=== PATIENT | female | born 1935 | race Caucasian/White ===

== ENCOUNTER 2021-10-12 11:39 | Day surgery (SDC) | payer MEDICARE ==
[~2021-10-12] VITALS: Ht 160 cm; Wt 54.1 kg
[2021-10-12] VITALS (9 sets, daily range): BP systolic 167–190; BP diastolic 68–88
[~2021-10-12 11:39] MED LIST: MELA1TAB52 PO; NAPR220T67 PO
[2021-10-12] MEDS ORDERED: normal saline 1,000 ML IV SCH (12:10)
[2021-10-12] MEDS ORDERED: LORazepam 0.5 MG tablet PO PRN (12:10)
[2021-10-12] MEDS ORDERED: diphenhydrAMINE 25mg capsule PO PRN (12:10)
[2021-10-12] MEDS ORDERED: VITA-268 PO (12:35)
[2021-10-12] MEDS ORDERED: lutein PO (12:35)
[2021-10-12] MEDS ORDERED: IODI150T PO (12:35)
[2021-10-12] MEDS ORDERED: GINK60TA2 PO (12:35)
[2021-10-12] MEDS ORDERED: [UNRECOGNIZED DRUG - OTHER] PO (12:35)
[2021-10-12] MEDS ORDERED: magnesium PO (12:35)
[2021-10-12] MEDS ORDERED: OMEG1CAP46 PO (12:35)
[2021-10-12] MEDS ORDERED: UBID30CA11 PO (12:35)
[2021-10-12] MEDS ORDERED: LACT1CAP65 PO (12:35)
[2021-10-12] MEDS ORDERED: collagen TOP (12:35)
[2021-10-12] MEDS ORDERED: ASPI81TA52 PO (12:35)
[2021-10-12] MEDS ORDERED: CHOL100046 PO (12:35)
[2021-10-12] MEDS ORDERED: VITA100T5 PO (12:35)
[2021-10-12] MEDS ORDERED: FLAX10007 PO (12:35)
[2021-10-12] MEDS ORDERED: BIOT10TA PO (12:35)
[2021-10-12] MEDS ORDERED: GLUC-253 PO (12:35)
[2021-10-12] MEDS ORDERED: astragalus PO (12:35)
[2021-10-12] MEDS ORDERED: ASCO500C17 PO (12:35)
[2021-10-12] MEDS ORDERED: BILB1CAP PO (12:35)
[2021-10-12] MEDS ORDERED: HAWTHORN PO (12:35)
[2021-10-12 12:51] LABS: BASOPHILS # (AUTO) 0.1 X10'3 (0-0.2); EOSINOPHILS # (AUTO) 0.1 X10'3 (0-0.9); EOSINOPHILS % (AUTO) 1.9 % (0-6); HEMATOCRIT 42.2 % (35.0-45.0); HEMOGLOBIN 14.4 g/dl (12.0-16.0); LYMPHOCYTES # (AUTO) 1.4 X10'3 (1.1-4.8); LYMPHOCYTES % (AUTO) 25.7 % (21-51); MEAN CORPUSCULAR HEMOGLOBIN 30.4 PG (27.0-31.0); MEAN CORPUSCULAR HGB CONC 34.1 g/dL (33.0-36.5); MEAN CORPUSCULAR VOLUME 89.2 FL (78-98); MEAN PLATELET VOLUME 7.4 FL (7.4-10.4); MONOCYTES # (AUTO) 0.4 X10'3 (0-0.9); MONOCYTES % (AUTO) 7.6 % (2-12); NEUTROPHILS # (AUTO) 3.5 X10'3 (1.8-7.7); NEUTROPHILS % (AUTO) 63.8 % (42-75); PLATELET COUNT 199 X10'3 (140-440); RED BLOOD COUNT 4.73 X10'6 (4.20-5.60); RED CELL DISTRIBUTION WIDTH 13.2 % (11.5-14.5); WHITE BLOOD COUNT 5.5 X10'3 (4.5-11.0)
[2021-10-12 12:58] LABS: ALBUMIN 4.8 G/DL (3.4-5.0); ANION GAP 11 (8-16); BLOOD UREA NITROGEN 18 MG/DL (7-18); BUN/CREATININE RATIO 16.4 (6.6-38.0); CALCIUM 10.4 MG/DL (8.5-10.1); CHLORIDE 103 MMOL/L (99-107); GLUCOSE 93 MG/DL (70-104); POTASSIUM 4.4 MMOL/L (3.5-5.1); SODIUM 142 MMOL/L (135-145); TOTAL CARBON DIOXIDE 28.5 MMOL/L (24-32); eGFR 47 ML/MIN
[2021-10-12 13:02] LABS: APTT 26 SECONDS (22-32)
[2021-10-12] MEDS ORDERED: verapamil 2.5 mg/ml inj IV ONE (14:17)
[2021-10-12] MEDS ORDERED: fentaNYL/PF 50MCG/1 ML 2ML syringe ONE (14:17)
[2021-10-12] MEDS ORDERED: nitroGLYCERIN-Tridil 50MG/D5W 250 ML IV ONE (14:17)
[2021-10-12] MEDS ORDERED: heparin 1,000unit/ml 10ml vial 10 ML ONE (14:18)
[2021-10-12] MEDS ORDERED: midazolam 1 mg/ML 2ml injection ONE (14:18)
[2021-10-12] MEDS ORDERED: iohexol 350MG/ML 100ml bottle IV ONE ×2 (14:18→15:31)
[2021-10-12] MEDS ORDERED: LIDOcaine 1% (10mg/ml) 2ml vial ONE (14:18)
[2021-10-12] MEDS ORDERED: aspirin 325mg tablet ONE (15:21)
[2021-10-12] MEDS ORDERED: clopidogrel 300mg tablet ONE (15:21)
[2021-10-12] MEDS ORDERED: HYDROcodone/acetaminophen 5mg/325mg tablet PO PRN (16:45)
[2021-10-12] MEDS ORDERED: HYDROcodone/acetaminophen 10/325mg tab PO PRN (16:45)
[2021-10-13 06:28] LABS: ISTAT Hct MIX 34 %PCV (35-48); ISTAT O2 SATURATION MIX VENOUS 59 % (60-80); ISTAT SOURCE VEN
[2021-10-13 06:28] LABS: ISTAT Hct MIX 34 %PCV (35-48); ISTAT O2 SATURATION MIX VENOUS 80 % (60-80); ISTAT SOURCE BLNK
== END 2021-10-12 18:45 | disposition home or self-care (01) ==
LOC: SSTAY O 11:39
PROVIDERS: ATTEND Student in an Organized Health Care Education/Training Program
DX: I25.10 Atherosclerotic heart disease of native coronary artery without angina pectoris (principal); I10 Essential (primary) hypertension; I08.0 Rheumatic disorders of both mitral and aortic valves; Z79.899 Other long term (current) drug therapy; Z98.890 Other specified postprocedural states; Z88.0 Allergy status to penicillin; Z79.01 Long term (current) use of anticoagulants
CPT/HCPCS: 36415; 80048; 82803; 85014; 85025; 85610; 85730; 93005; 93456; 99152; 99153; A6258; C1725; C1751; C1769; C1874; C1894; C9600; J1644; J2250; J3010; J3490; J7030; Q0163; Q9967; A5120; A6402

== ENCOUNTER 2022-01-19 11:44 | Outpatient (CLI) | payer MEDICARE ==
[~2022-01-19 11:44] MED LIST changes: +ASCO500C17 PO; +ASPI81TA52 PO; +BILB1CAP PO; +BIOT10TA PO; +CHOL100046 PO; +FLAX10007 PO; +GINK60TA2 PO; +GLUC-253 PO; +HAWTHORN PO; +IODI150T PO; +IODIXANOL 320 MG/ML INFUS..BTL 100ML IV ONE; +LACT1CAP65 PO; -MELA1TAB52 PO; -NAPR220T67 PO; +OMEG1CAP46 PO; +UBID30CA11 PO; +VITA-268 PO; +VITA100T5 PO; +[UNRECOGNIZED DRUG - OTHER] PO; +astragalus PO; +collagen TOP; +lutein PO; +magnesium PO
[2022-01-19 12:23] LABS: BASOPHILS % (AUTO) 0.8 % (0-1); EOSINOPHILS # (AUTO) 0.1 X10'3 (0-0.9); EOSINOPHILS % (AUTO) 1.2 % (0-6); HEMATOCRIT 39.4 % (35.0-45.0); HEMOGLOBIN 13.3 g/dl (12.0-16.0); LYMPHOCYTES # (AUTO) 1.2 X10'3 (1.1-4.8); LYMPHOCYTES % (AUTO) 22.4 % (21-51); MEAN CORPUSCULAR HEMOGLOBIN 30.5 PG (27.0-31.0); MEAN CORPUSCULAR HGB CONC 33.7 g/dL (33.0-36.5); MEAN CORPUSCULAR VOLUME 90.5 FL (78-98); MEAN PLATELET VOLUME 7.6 FL (7.4-10.4); MONOCYTES # (AUTO) 0.4 X10'3 (0-0.9); MONOCYTES % (AUTO) 6.6 % (2-12); NEUTROPHILS # (AUTO) 3.7 X10'3 (1.8-7.7); PLATELET COUNT 162 X10'3 (140-440); RED BLOOD COUNT 4.35 X10'6 (4.20-5.60); RED CELL DISTRIBUTION WIDTH 13.1 % (11.5-14.5); WHITE BLOOD COUNT 5.4 X10'3 (4.5-11.0)
[2022-01-19 14:51] LABS: APTT 26 SECONDS (22-32)
[2022-01-19 15:06] LABS: ALANINE AMINOTRANSFERASE 36 U/L (12-78); ALBUMIN 4.3 G/DL (3.4-5.0); ALBUMIN/GLOBULIN RATIO 1.4 (1.1-1.5); ALKALINE PHOSPHATASE 65 IU/L (46-116); ANION GAP 11 (8-16); ASPARTATE AMINO TRANSFERASE 27 U/L (10-37); BILIRUBIN,TOTAL 0.6 MG/DL (0.1-1.0); BLOOD UREA NITROGEN 15 MG/DL (7-18); BUN/CREATININE RATIO 14.3 (6.6-38.0); CALCIUM 10.1 MG/DL (8.5-10.1); CHLORIDE 103 MMOL/L (99-107); CREATININE 1.05 MG/DL (0.40-0.90); GLUCOSE 97 MG/DL (70-104); POTASSIUM 4.3 MMOL/L (3.5-5.1); SODIUM 142 MMOL/L (135-145); TOTAL PROTEIN 7.4 G/DL (6.4-8.2); eGFR 50 ML/MIN
== END 2022-01-19 23:59 | disposition home or self-care (01) ==
LOC: RAD 11:44
PROVIDERS: ATTEND Internal Medicine Cardiovascular Disease
DX: Z01.818 Encounter for other preprocedural examination (principal); I70.0 Atherosclerosis of aorta; I31.39 Other pericardial effusion (noninflammatory); I51.7 Cardiomegaly; I35.0 Nonrheumatic aortic (valve) stenosis; I65.29 Occlusion and stenosis of unspecified carotid artery; Z87.891 Personal history of nicotine dependence; Z79.899 Other long term (current) drug therapy
CPT/HCPCS: 36415; 71046; 71275; 74174; 80053; 85025; 85610; 85730; 94010; 94727; 94729; J3490; Q9967

== ENCOUNTER 2022-03-17 08:21 | Inpatient (IN) | payer MEDICARE ==
[2022-03-11 11:25] LABS: BASOPHILS # (AUTO) 0.1 X10'3 (0-0.2); EOSINOPHILS # (AUTO) 0.1 X10'3 (0-0.9); EOSINOPHILS % (AUTO) 2.4 % (0-6); LYMPHOCYTES # (AUTO) 1.1 X10'3 (1.1-4.8); LYMPHOCYTES % (AUTO) 22.9 % (21-51); MEAN CORPUSCULAR HEMOGLOBIN 31.4 PG (27.0-31.0); MEAN CORPUSCULAR HGB CONC 34.4 g/dL (33.0-36.5); MEAN CORPUSCULAR VOLUME 91.1 FL (78-98); MEAN PLATELET VOLUME 7.6 FL (7.4-10.4); MONOCYTES # (AUTO) 0.4 X10'3 (0-0.9); MONOCYTES % (AUTO) 7.2 % (2-12); NEUTROPHILS # (AUTO) 3.3 X10'3 (1.8-7.7); NEUTROPHILS % (AUTO) 66.5 % (42-75); PRE OP HEMATOCRIT 35.9 % (35.0-45.0); PRE OP HEMOGLOBIN 12.4 g/dL (12.0-16.0); PRE OP PLATELET COUNT 160 X10'3 (140-440); RED BLOOD COUNT 3.94 X10'6 (4.20-5.60)
[2022-03-11 11:43] LABS: PRE OP INR 1.1 INR; PRE OP PROTIME 11.4 SECONDS (9.0-12.0)
[2022-03-11 11:46] LABS: ALBUMIN 3.9 G/DL (3.4-5.0); ALBUMIN/GLOBULIN RATIO 1.2 (1.1-1.5); ALKALINE PHOSPHATASE 73 IU/L (46-116); BLOOD UREA NITROGEN 14 MG/DL (7-18); BUN/CREATININE RATIO 13.3 (6.6-38.0); CALCIUM 9.6 MG/DL (8.5-10.1); CHLORIDE 105 MMOL/L (99-107); CREATININE 1.05 MG/DL (0.40-0.90); PRE OP ALT 36 U/L (30-65); PRE OP ANION GAP 3 (8-16); PRE OP AST 32 U/L (10-37); PRE OP BILIRUB, TOTAL 0.4 MG/DL (0.0-1.0); PRE OP GLUCOSE 73 MG/DL (70-104); PRE OP POTASSIUM 4.3 MMOL/L (3.4-5.1); PRE OP SODIUM 140 MMOL/L (135-145); TOTAL CARBON DIOXIDE 32.2 MMOL/L (24-32); TOTAL PROTEIN 7.2 G/DL (6.4-8.2); eGFR 50 ML/MIN
[2022-03-11 12:12] LABS: CLARITY,URINE SLIGHTLY CLOUDY (Clear); COLOR,URINE YELLOW (Yellow); GLUCOSE, URINE NEGATIVE (Neg); KETONES,URINE NEGATIVE (Neg); LEUKOCYTE ESTERASE ,URINE NEGATIVE (Neg); NITRITES, URINE NEGATIVE (Neg); OCCULT BLOOD,URINE NEGATIVE (Neg); PROTEIN,URINE NEGATIVE (Neg); UROBILINOGEN,URINE 0.2 E.U/dL (0.2-1.0)
[2022-03-11 12:20] LABS: UA COLLECTION TYPE NON-SPECIFIED
[2022-03-11 12:21] LABS: BACTERIA,URINE FEW /HPF (Neg); RBC,URINE 0-2 /HPF (0-2); SQUAMOUS EPITHELIAL CELL,UR FEW /LPF (FEW); WBC,URINE 0-4 /HPF (0-4)
[~2022-03-17] VITALS: Ht 152.4 cm; Wt 51.8 kg
[2022-03-17] VITALS (26 sets, daily range): BP systolic 133–165; BP diastolic 38–79
[~2022-03-17 08:21] MED LIST changes: +ATOR40TA PO; +CLOP-32 PO; -FLAX10007 PO; -GINK60TA2 PO; -IODI150T PO; -IODIXANOL 320 MG/ML INFUS..BTL 100ML IV ONE; +LIDOcaine 1% (10mg/ml) 2ml vial ONE; +LISI10TA27 PO; +aspirin 325mg tablet PO ONE; -astragalus PO; -collagen TOP; +famotidine 20mg tablet PO ONE; +nitroPRUSSIDE (NIPRIDE) (200MCG/ML) 100ML Drip IV SCH; +ondansetron/PF 4mg/2ml inj IV PRN; +phenylephrine inj 50 MG in normal saline 250ml IV solN IV SCH; +protamine sulfate 10mg/ml inj. ONE; +ringers solution, lacted 1,000 ML IV SCH; +vancomycin/NS 1 GM in NS 250 ML IV ONE
[2022-03-17] MEDS ORDERED: morphine 4 MG/ML inj SYRINge IV PRN (10:55)
[2022-03-17] MEDS ORDERED: labetalol 20mg/4ml (5mg/ml) syringe IV PRN (10:55)
[2022-03-17] MEDS ORDERED: morphine 2 MG/ML inj. syringe IV PRN (10:55)
[2022-03-17] MEDS ORDERED: fentaNYL/PF 50MCG/1 ML 2ML syringe IV PRN ×2 (10:55)
[2022-03-17] MEDS ORDERED: ringers solution, lacted 1,000 ML IV SCH (10:55)
[2022-03-17] MEDS ORDERED: ondansetron/PF 4mg/2ml inj IV PRN ×2 (10:55→14:40)
[2022-03-17] MEDS ORDERED: hydrALAZINE 20mg/ml inj. IV PRN ×2 (10:55→14:40)
[2022-03-17] MEDS ORDERED: LIDOcaine 1% 30ml preserv. free vial ONE (12:31)
[2022-03-17] MEDS ORDERED: iohexol 350 MG/ML 50ML vial IV ONE (12:31)
[2022-03-17] MEDS ORDERED: iohexol 350MG/ML 100ml bottle IV ONE (12:31)
[2022-03-17] MEDS ORDERED: heparin 1,000 UNITS/NS 500ml 1,500 ML ONE (12:32)
[2022-03-17] MEDS ORDERED: dexmedetomidine 200mcg/2ml inj. IV ONE (12:45)
[2022-03-17] MEDS ORDERED: fentaNYL/PF 50MCG/1 ML 2ML syringe ONE (12:46)
[2022-03-17] MEDS ORDERED: midazolam 1 mg/ML 2ml injection ONE ×2 (12:47)
[2022-03-17] MEDS ORDERED: heparin 1,000unit/ml 10ml vial 10 ML ONE (13:11)
[2022-03-17] MEDS ORDERED: propofol inj 20 ML IV ONE (13:46)
[2022-03-17] MEDS ORDERED: magnesium 4gm in 100ml NS 100 ML IV PRN (14:40)
[2022-03-17] MEDS ORDERED: magnesium 2GM in 50ml NS 50 ML IV PRN (14:40)
[2022-03-17] MEDS ORDERED: docusate sod 100mg capsule PO PRN (14:40)
[2022-03-17] MEDS ORDERED: ALPRAZolam 0.25mg tablet PO PRN (14:40)
[2022-03-17] MEDS ORDERED: potassium Cl 20 mEq SR tablet PO PRN (14:40)
[2022-03-17] MEDS ORDERED: potassium Cl 20mEq/100mL bag 100 ML IV PRN (14:40)
[2022-03-17] MEDS ORDERED: diphenhydrAMINE 25mg capsule PO PRN (14:40)
[2022-03-17] MEDS ORDERED: potassium Cl 40MEQ/1/2NS 520ml 520 ML IV PRN (14:40)
[2022-03-17] MEDS ORDERED: potassium Cl 40MEQ/270ML bag 250 ML IV PRN (14:40)
[2022-03-17] MEDS ORDERED: proCHLORperazine 10 MG/2 ml inj IV PRN (14:40)
[2022-03-17] MEDS ORDERED: potassium CL 10mEq/100ml bag 100 ML IV PRN (14:40)
[2022-03-17] MEDS ORDERED: pantoprazole 40mg Tablet.DR PO PRN (14:40)
[2022-03-17] MEDS ORDERED: acetaminophen 325mg tablet PO PRN (14:40)
--- NOTE | 2022-03-17 14:48 | NUR ---
Received from OR via HOSPITAL BED, accompanied by Anesthesiologist DR CURTIS and report given by Anesthesiolgist. PT PRESENTS WITH PIV 18G LEFT FOREARM, ART LINE RIGHT ARM, PEDAL PULSES FOUND WITH DOPPLER, PT CAME OUT OF OR WITH EXTERNAL PACEMAKER 6 VENEZUELAN LEFT FEMERAL VEIN, DR VINCENT TO RE-EVALAUTED PEXTERNAL PACEMAKER IN 1 HOUR. VSS. Addendum: 03/17/22 at 1531 by Toshia Torres RN, RN Amended: Links added.
--- NOTE | 2022-03-17 15:45 | NUR ---
PT RIGHT GROIN DRESSING SATURATED. I PUT NEW 4X4 WITH PRESSURE FOR 15 MINUTES. NEW 4X4 AND NEW TEGADERM PLACED.
[2022-03-17] MEDS ORDERED: ceFAZolin 1GM/D5W- ADD-VANTAGE 50 ML IV SCH (16:00)
--- NOTE | 2022-03-17 16:47 | NUR ---
PT'S FRIEND/CONTACT IS TONY [phone]
--- NOTE | 2022-03-17 17:07 | NUR ---
DR LOUISE AND DR VINCENT AT BEDSIDE, EXTERNAL PACEMAKER REMOVED FROM LEFT GROIN, PRESSURE HELD. DRESSING PLACED 4X4 WITH TEGADERM. RIGHT SIDE GROIN DRESSING SCANT BLOOD. DRESSING REMOVED, DR VINCENT PUT PRESSURE AND NEW DRESSING WITH TEGADERM APPLIED.
[2022-03-17] MEDS ORDERED: LIDOCAINE 2%/EPI 1:100,000 inj. Multi-dose 20 ML VIAL IJ ONE (17:16)
--- NOTE | 2022-03-17 18:08 | NUR ---
Report called to receiving nurse LYNSEY GERMAN. Transferred via HOSPITAL BED TO ROOM 3027B. BED IN LOW LOCKED POSITION, CALL LIGHT IN REACH. PT LEFT GROIN WITH HEMATOME. DR VINCENT CALLED AND REOMEND THAT WE PUT PRESSURE FOR 10-15 MINUTES. MESSAGE RELAYED TO LYNSEY GERMAN. ONE PT Belongings BAG TO ROOM 3027B.PT KAY DUP TO BEDSIDE MONITOR, PEDAL PULSES FOUND WITH DOPPLER. Special Issues communicated to receiving nurse. Addendum: 03/17/22 at 1822 by Toshia Torres RN, RN Amended: Links added.
--- NOTE | 2022-03-17 18:10 | NUR ---
Pt brought from recovery. Left groin was noted to have hematoma. Dalia GERMAN holding pressure for [address] Busby states its most likely a venous bleed. Hold pressure for 10 min. Venous bleed has decreased in size.
[2022-03-17] MEDS: normal saline 1000ml 1,000 ML IV SCH (18:12)
--- NOTE | 2022-03-17 18:20 | NUR ---
Dalia GERMAN held pressure for 5 more minutes. Hematoma is shaped like a bumpy log. Femstop to be placed.
--- NOTE | 2022-03-17 18:39 | NUR ---
Destini placed 1835 left groin.
--- NOTE | 2022-03-17 18:42 | NUR ---
Problems reprioritized. Patient report given, questions answered & plan of care reviewed with Paula RN. Bedside report given.
[2022-03-17] MEDS: vancomycin/NS 1 GM ADD-VANTAGE 250 ML IV SCH (20:52)
[2022-03-17] MEDS ORDERED: atorvastatin 20mg tablet PO SCH (21:00)
--- NOTE | 2022-03-17 22:26 | NUR ---
Received pt. awake alert oriented post procedure c/o pain at right groin site. Day nurse holding pressure over hematoma. Placed on Femstop 45 mm/hg pressure. Dressing dry and intact outlined hematoma site. Peripheral IV intact NS at 100. Monitor shows NSR occasional PVC Pt. feels cool to touch warm blankets applied. Left arm large bruise noted. Pt. ingesting fluids well. Purewick placed. Medicated for pain as needed tolerated well effective relief. Plan Flat position until 12 MN then move about in bed bedrest.
[2022-03-18] VITALS: BP 144/46
[2022-03-18 02:00] VITALS: BP 140/47
[2022-03-18 04:00] VITALS: BP 136/58
[2022-03-18] MEDS: normal saline 1000ml 1,000 ML IV SCH (06:39)
[2022-03-18] MEDS: sod chloride 0.9% 10ml flush syringe IV SCH ×2 (06:40→08:54)
[2022-03-18 07:15] VITALS: BP 125/80
[2022-03-18 07:43] LABS: BASOPHILS % (AUTO) 0.6 % (0-1); EOSINOPHILS # (AUTO) 0.1 X10'3 (0-0.9); EOSINOPHILS % (AUTO) 1.4 % (0-6); HEMATOCRIT 29.2 % (35.0-45.0); HEMOGLOBIN 10.3 g/dl (12.0-16.0); LYMPHOCYTES # (AUTO) 0.9 X10'3 (1.1-4.8); LYMPHOCYTES % (AUTO) 15.8 % (21-51); MEAN CORPUSCULAR HEMOGLOBIN 32.4 PG (27.0-31.0); MEAN CORPUSCULAR HGB CONC 35.2 g/dL (33.0-36.5); MEAN CORPUSCULAR VOLUME 92.1 FL (78-98); MEAN PLATELET VOLUME 7.9 FL (7.4-10.4); MONOCYTES # (AUTO) 0.5 X10'3 (0-0.9); MONOCYTES % (AUTO) 9.1 % (2-12); NEUTROPHILS # (AUTO) 4.3 X10'3 (1.8-7.7); NEUTROPHILS % (AUTO) 73.1 % (42-75); PLATELET COUNT 123 X10'3 (140-440); RED BLOOD COUNT 3.17 X10'6 (4.20-5.60); RED CELL DISTRIBUTION WIDTH 15.5 % (11.5-14.5); WHITE BLOOD COUNT 5.9 X10'3 (4.5-11.0)
[2022-03-18] MEDS ORDERED: OMEGA-3/DHA/EPA/FISH OIL 1 EACH CAPSULE.DR PO SCH (08:00)
[2022-03-18] MEDS ORDERED: GLUCOS SUL PO SCH (08:00)
[2022-03-18] MEDS ORDERED: ascorbic acid 500mg tablet PO SCH (08:00)
[2022-03-18] MEDS ORDERED: vitamin B comp w/Vit. C tab 1 TAB TABLET PO SCH (08:00)
[2022-03-18] MEDS ORDERED: [UNRECOGNIZED DRUG - OTHER] PO SCH (08:00)
[2022-03-18] MEDS ORDERED: lisinopril 10 MG tablet PO SCH (08:00)
[2022-03-18] MEDS ORDERED: MAGNESIUM 300 MG PO SCH (08:00)
[2022-03-18] MEDS ORDERED: BIOTIN PO SCH (08:00)
[2022-03-18] MEDS ORDERED: vitamin E 400 unit capsule PO SCH (08:00)
[2022-03-18] MEDS ORDERED: lactobacillus rhamnosus 10,000 MMU CELLS/CAPSULE PO SCH (08:00)
[2022-03-18] MEDS ORDERED: LUTEIN 6 MG PO SCH (08:00)
[2022-03-18] MEDS ORDERED: HAWTHORN PO SCH (08:00)
[2022-03-18] MEDS ORDERED: cholecalciferol (vitamin D3) 1,000 unit (25mcg) tablet PO SCH (08:00)
[2022-03-18] MEDS ORDERED: UBIDECARENONE 60 MG PO SCH (08:00)
[2022-03-18] MEDS ORDERED: [UNRECOGNIZED DRUG - OTHER] PO SCH (08:00)
[2022-03-18] MEDS ORDERED: aspirin 81mg, enteric-coated 1 TAB TABLET.DR PO SCH (08:00)
[2022-03-18] MEDS ORDERED: clopidogrel 75mg tablet PO SCH (08:00)
[2022-03-18 08:11] LABS: ALANINE AMINOTRANSFERASE 28 U/L (12-78); ALBUMIN/GLOBULIN RATIO 1.2 (1.1-1.5); ALKALINE PHOSPHATASE 62 IU/L (46-116); ANION GAP 5 (8-16); ASPARTATE AMINO TRANSFERASE 37 U/L (10-37); BILIRUBIN,TOTAL 0.5 MG/DL (0.1-1.0); BLOOD UREA NITROGEN 10 MG/DL (7-18); CALCIUM 8.8 MG/DL (8.5-10.1); CHLORIDE 107 MMOL/L (99-107); CREATININE 0.83 MG/DL (0.40-0.90); GLUCOSE 110 MG/DL (70-104); MAGNESIUM 2.4 MG/DL (1.5-2.4); POTASSIUM 4.4 MMOL/L (3.5-5.1); SODIUM 137 MMOL/L (135-145); TOTAL CARBON DIOXIDE 25.3 MMOL/L (24-32); TOTAL PROTEIN 5.6 G/DL (6.4-8.2); eGFR 65 ML/MIN
[2022-03-18] MEDS: vancomycin/NS 1 GM ADD-VANTAGE 250 ML IV SCH (08:51)
[2022-03-18 11:31] VITALS: BP 125/39
--- NOTE | 2022-03-18 12:45 | NUR ---
Amb 300 ft with walker
[2022-03-18 14:42] VITALS: BP 127/48
--- NOTE | 2022-03-18 16:25 | NUR ---
T DISCHARGED IN STABLE CONDITON A LITTLE AFTER 3PM WITH BELONGINGS AND DISCHARGE INFO WELL APPOINTMENT LIST. PT CALLED AND CAME BACK AND GOT MODEL NUMBER FOR AVR.
== END 2022-03-18 15:00 | disposition home or self-care (01) | DRG 267 ==
LOC: UNDOADMIN 08:21 → PAS IN 08:21 → PCU 3S 17:52
PROVIDERS: ADMIT Internal Medicine Cardiovascular Disease; ATTEND Internal Medicine Cardiovascular Disease
PROC: 02RF38Z Replacement of Aortic Valve with Zooplastic Tissue, Percutaneous Approach (ICD-10-PCS; 2022-03-17)
PROC: 5A1223Z Performance of Cardiac Pacing, Continuous (ICD-10-PCS; 2022-03-17)
PROC: B41D1ZZ Fluoroscopy of Aorta and Bilateral Lower Extremity Arteries using Low Osmolar Contrast (ICD-10-PCS; principal; 2022-03-17 12:45)
DX: I35.0 Nonrheumatic aortic (valve) stenosis (principal); Z00.6 Encounter for examination for normal comparison and control in clinical research program; Z60.2 Problems related to living alone; I10 Essential (primary) hypertension; I25.10 Atherosclerotic heart disease of native coronary artery without angina pectoris; I45.9 Conduction disorder, unspecified; Z98.61 Coronary angioplasty status; Z88.0 Allergy status to penicillin; Z88.8 Allergy status to other drugs, medicaments and biological substances
CPT/HCPCS: 33361; 36415; 71045; 71046; 76937; 80053; 81001; 82948; 83735; 83880; 85025; 85347; 85610; 85730; 86920; 87081; 93005; 93308; A4565; A4615; A4618; A6223; A6258; A6449; C1756; C1760; C1769; C1892; C1894; G0378; J1644; J2250; J2270; J2370; J2405; J2704; J2720; J3010; J3370; J3490; J7030; J7040; J7050; J7120; Q9967

== ENCOUNTER 2022-03-30 00:18 | Emergency (ER) | payer MEDICARE ==
[~2022-03-30] VITALS: Ht 152.4 cm; Wt 65.0 kg
[~2022-03-30 00:18] MED LIST changes: -LIDOcaine 1% (10mg/ml) 2ml vial ONE; -aspirin 325mg tablet PO ONE; -famotidine 20mg tablet PO ONE; -nitroPRUSSIDE (NIPRIDE) (200MCG/ML) 100ML Drip IV SCH; -ondansetron/PF 4mg/2ml inj IV PRN; -phenylephrine inj 50 MG in normal saline 250ml IV solN IV SCH; -protamine sulfate 10mg/ml inj. ONE; -ringers solution, lacted 1,000 ML IV SCH; -vancomycin/NS 1 GM in NS 250 ML IV ONE
[2022-03-30 01:01] LABS: BASOPHILS # (AUTO) 0.1 X10'3 (0-0.2); BASOPHILS % (AUTO) 1.1 % (0-1); EOSINOPHILS # (AUTO) 0.2 X10'3 (0-0.9); EOSINOPHILS % (AUTO) 3.2 % (0-6); HEMATOCRIT 32.9 % (35.0-45.0); HEMOGLOBIN 11.4 g/dl (12.0-16.0); LYMPHOCYTES # (AUTO) 1.1 X10'3 (1.1-4.8); LYMPHOCYTES % (AUTO) 18.5 % (21-51); MEAN CORPUSCULAR HGB CONC 34.6 g/dL (33.0-36.5); MEAN CORPUSCULAR VOLUME 92.4 FL (78-98); MEAN PLATELET VOLUME 7.2 FL (7.4-10.4); MONOCYTES # (AUTO) 0.4 X10'3 (0-0.9); NEUTROPHILS # (AUTO) 4.2 X10'3 (1.8-7.7); NEUTROPHILS % (AUTO) 71.2 % (42-75); PLATELET COUNT 175 X10'3 (140-440); RED BLOOD COUNT 3.56 X10'6 (4.20-5.60); RED CELL DISTRIBUTION WIDTH 15.7 % (11.5-14.5); WHITE BLOOD COUNT 5.9 X10'3 (4.5-11.0)
[2022-03-30 01:08] LABS: ALANINE AMINOTRANSFERASE 36 U/L (12-78); ALBUMIN 4.3 G/DL (3.4-5.0); ALBUMIN/GLOBULIN RATIO 1.5 (1.1-1.5); ALKALINE PHOSPHATASE 83 IU/L (46-116); ANION GAP 10 (8-16); ASPARTATE AMINO TRANSFERASE 30 U/L (10-37); BILIRUBIN,TOTAL 0.8 MG/DL (0.1-1.0); BLOOD UREA NITROGEN 15 MG/DL (7-18); CALCIUM 9.5 MG/DL (8.5-10.1); CHLORIDE 102 MMOL/L (99-107); GLUCOSE 131 MG/DL (70-104); POTASSIUM 4.2 MMOL/L (3.5-5.1); SODIUM 140 MMOL/L (135-145); TOTAL CARBON DIOXIDE 27.6 MMOL/L (24-32); TOTAL PROTEIN 7.2 G/DL (6.4-8.2); eGFR 52 ML/MIN
[2022-03-30] MEDS ORDERED: ketorolac trometh. 30mg/ml inj. IV ONE (01:20)
[2022-03-30] MEDS ORDERED: acetaminophen 325mg tablet PO ONE (01:20)
[2022-03-30 01:40] LABS: CREATINE KINASE 77 U/L (26-192)
[2022-03-30 02:10] LABS: D-DIMER 2.04 MG/L FEU (0-0.50)
[2022-03-30] MEDS ORDERED: TRAM50TA2 PO (05:47)
[2022-03-30 08:34] VITALS: BP 157/75
[2022-03-30] MEDS ORDERED: morphine 4 MG/ML inj SYRINge IV ONE ×2 (09:25→09:45)
[2022-03-30] MEDS ORDERED: HYDR-3965 PO ×2 (11:00→11:02)
== END 2022-03-30 11:37 | disposition home or self-care (01) ==
LOC: ER 00:19
DX: R07.9 Chest pain, unspecified (principal); M79.602 Pain in left arm; Z98.890 Other specified postprocedural states; Z88.0 Allergy status to penicillin; Z88.5 Allergy status to narcotic agent; Z88.8 Allergy status to other drugs, medicaments and biological substances; Z79.899 Other long term (current) drug therapy
CPT/HCPCS: 36415; 71045; 76936; 80053; 82550; 83880; 84484; 85025; 85379; 93005; 93931; 93971; 96374; 96375; 99285; J1885; J2270